=== PATIENT | male | born 2000 | race Caucasian/White ===

== ENCOUNTER 2022-07-28 11:48 | Emergency (ER) | payer BC, SELFPAY ==
--- NOTE | ~2022-07-28 | XR_ITS ---
EXAMINATION: XR chest 2V DATE: 07/28/2022 12:35 INDICATION: Chest pain. TECHNIQUE: Frontal and lateral views of the chest were obtained. COMPARISON: None. FINDINGS: The chest demonstrates clear lungs without pneumonia, pleural effusion, or pneumothorax. Th e heart size is normal. IMPRESSION: 1. No acute cardiopulmonary disease. Reviewed, dictated and finalized at location A.
--- NOTE | 2022-07-28 11:50 | ECG_ITS ---
Measurements Intervals [place] Rate: 76 P: 51 UT: 120 QRS: 66 QRSD: 72 T: 68 QT: 340 QTc: 384 Interpretive Statements SINUS RHYTHM WITH SINUS ARRHYTHMIA BASELINE WANDER- I, II, V2-V3 NORMAL ECG NO PREVIOUS ECG AVAILABLE FOR COMPARISON Electronically Signed On 07-28-2022 12:46:57 CDT by Carlos Bonner D.O.
[2022-07-28 12:00] VITALS: BP 124/70; PULSE 76; RESP 15; TEMP 36.7; O2SAT 99
[2022-07-28 12:22] LABS: Basophils Percent Auto 0.6 % (0.2-1.2); Eosinophils Absolute Auto 0.1 K/mm3 (0-0.3); Eosinophils Percent Auto 1.7 % (0-4.4); Hematocrit 44.4 % (42.0-52.0); Hemoglobin 14.7 g/dL (14.0-18.0); Immature Granulocyte Absolute 0.01 K/mm3 (0.00-0.031); Immature Granulocyte Percent A 0.2 % (0-0.5); Lymphocytes Absolute Auto 1.58 K/mm3 (0.9-3.2); Mean Corpuscular HGB Conc 33.1 g/dl (32-36); Mean Corpuscular Hemoglobin 30.1 pg (26-34); Mean Platelet Volume 9.5 fl (7.4-10.4); Monocytes Absolute Auto 0.7 K/mm3 (0.1-0.6); Monocytes Percent Auto 12.8 % (2.6-8.5); Neutrophils Percent Auto 55.7 % (45.5-73.1); Platelet Count Result 263 k/mm3 (150-375); Red Blood Count 4.88 M/mm3 (4.6-6.20); Red Cell Distribution Width 13.7 % (11.5-14.5); White Blood Count 5.5 K/mm3 (4.5-10.0)
[2022-07-28 12:31] LABS: Prothrombin Time 12.8 Seconds (11.1-14.7)
[2022-07-28 12:32] LABS: Alanine Aminotransferase 24 U/L (6-50); Albumin Level 4.8 g/dL (3.5-5.1); Alkaline Phosphatase 98 U/L (38-126); Anion Gap 6 mmol/L (8-16); Aspartate Amino Transferase 23 U/L (17-59); Bilirubin,Total 0.4 mg/dL (0.2-1.3); Blood Urea Nitrogen 19 mg/dL (9-20); Calcium 9.5 mg/dL (8.4-10.2); Carbon Dioxide 26 mmol/L (22-30); Chloride 103 mmol/L (98-107); Estimated CRCL calculation 134 ml/min; Estimated Glomerular Filt Rate > 60; Glucose 96 mg/dL (65-110); Lipase 47 U/L (23-300); Partial Thromboplastin Time 29.2 SECONDS (22.3-36.8); Potassium 4.2 mmol/L (3.4-5.0); Sodium 135 mmol/L (137-145)
[2022-07-28 12:44] LABS: Troponin I < 0.012 ng/mL (0.000-0.034)
--- NOTE | 2022-07-28 13:02 | ED.CHESTPAIN ---
HPI - Chest Pain General Chief Complaint: Chest Pain Stated Complaint: Chest Pain, Collapsed Last week, Sent by PCP today Time Seen by Provider: 07/28/22 12:29 History of Present Illness HPI narrative: 21-year-old male with no medical history presenting with chest pain that started about a week ago, to his left chest, comes and goes, does not seem to be associate with anything other than when he is feeling stressed. No recent trauma but states he had been lifting heavy weights for past few days. No cough; only family history of heart disease is grandfather with SD in his 40s. Related Data Allergies Allergy/AdvReac Type Severity Reaction Status Date / Time No Known Allergies Allergy Verified 07/28/22 11:49 Review of Systems Review of Systems: CONST: No fever. HEENT: No sore throat C/V: Chest pain RESP: No cough GI: No abdominal pain, nausea, vomiting : No dysuria. M/S: No joint pain. SKIN: No rash. NEURO: [No headache or focal numbness or weakness] PSYCH: Anxiety Exam Narrative: EXAMINATION OF ORGAN SYSTEMS/BODY AREAS: Constitutional: Vital signs per nursing GENERAL:[No acute distress, non-toxic appearing.] Pleasant and answering questions HEAD: Normal with no signs of head trauma. EYES: EOMI, conjunctiva normal ENT: Hearing grossly intact LUNGS: Nonlabored breathing. Speaking in full and complete sentences HEART: [Regular rate and rhythm]. No chest wall pain ABD: [Soft], [nontender to palpation] EXT: Normal range of motion SKIN: [No rashes or lesions.] NEURO: [Alert and oriented x 3. No gross focal sensory or strength deficits.] PSYCH: Normal affect Course Vital Signs Vital signs: Vital Signs Temperature 98.1 F 07/28/22 12:00 Pulse Rate 76 07/28/22 12:00 Respiratory Rate 15 07/28/22 12:00 Blood Pressure 124/70 07/28/22 12:00 Pulse Oximetry 99 07/28/22 12:00 Oxygen Delivery Room Air 07/28/22 12:00 Temperature 98.1 F 07/28/22 12:00 Pulse Rate 76 07/28/22 12:00 Respiratory Rate 15 07/28/22 12:00 Blood Pressure 124/70 07/28/22 12:00 Pulse Oximetry 99 07/28/22 12:00 Oxygen Delivery Room Air 07/28/22 12:00 MDM - Chest Pain MDM Narrative Medical decision making narrative: ED COURSE AND MEDICAL DECISION MAKIN-year-old man presenting with chest pain. EKG done in triage negative for acute ischemic changes. Cardiac workup is initiated. EKG: Performed in triage and interpreted by me. Normal sinus rhythm. Rate 76. Normal axis. IN normal. QRS duration normal. QTc normal. No pathologic Q waves. No ST segment elevation or depression to suggest acute ischemia. No RV strain pattern. Consistent with benign early repolarization. HEART score is 0 with no acute ischemic changes on EKG and negative troponin making ACS unlikely. Wells low risk with negative PERC and d-dimer making PE unlikely. Presentation not consistent with dissection or aneurysm without radiation of pain or pulse deficits. CXR negative for mediastinal widening. No abdominal pain or signs of sepsis that would be concerning for esophageal perforation or mediastinitis. No cardiomegaly or JVD to suggest pericardial effusion/tamponade. Labs within acceptable limits, chest x-ray unremarkable. On repeat evaluation just prior to discharge, the patient is no acute distress. I had a long discussion with the patient and with shared decision making, [he] is comfortable with outpatient management. [He] was given clear return instructions by myself in person as well as on discharge paperwork. Procedures: Pulse oximetry interpretation - not hypoxic. EKG interpretation. Review of medical records. Lab Data 07/28/22 12:08 07/28/22 12:08 Labs: Lab Results 07/28/22 07/28/22 07/28/22 Range/Units 12:08 12:08 12:08 WBC 5.5 (4.5-10.0) K/mm3 RBC 4.88 (4.6-6.20) M/mm3 Hgb 14.7 (14.0-18.0) g/dL Hct 44.4 (42.0-52.0) % MCV 91.0 (80-100) fl MCH 30.1 (26-34) pg MC
[2022-07-28 13:15] LABS: D Dimer < 0.27 ug/mL (<0.48)
[2022-07-28 13:40] VITALS: BP 142/84; RESP 78; O2SAT 16
== END 2022-07-28 13:41 | disposition home or self-care (01) ==
PROVIDERS: Physician Assistant; Emergency Provider Emergency Medicine; PCP Emergency Medicine
DX: R07.9 Chest pain, unspecified (principal)
CPT/HCPCS: 36415; 71046; 80053; 83690; 84484; 85025; 85380; 85610; 85730; 93005; 99283

== ENCOUNTER 2025-02-23 20:26 | Emergency (ER) | payer SELFPAY ==
[2025-02-23 20:28] VITALS: BP 133/79; PULSE 103; RESP 16; TEMP 36.9; O2SAT 99
--- NOTE | 2025-02-23 21:25 | ED_ITS ---
HPI - Allergic Reaction General Chief complaint: Allergic Reaction Stated complaint: ALLERGIC REACTION Time Seen by Provider: 02/23/25 20:43 History of Present Illness HPI narrative: Patient is 24-year-old male who presents to the ER with complaints of an allergic reaction. He reports he 1st noticed his symptoms this morning. Patient endorses redness, swelling, and patchy rash is all over his body besides his neck and face. He reports he took 2 Benadryl at home but it did not help relieve his symptoms. Patient reports the spots are itching. He denies any new soaps, laundry detergent, or lotions. Patient denies any shortness of breath, drooling, throat swelling, or headache. He denies any medical history relevant to this ER visit. Related Data Allergies Allergy/AdvReac Type Severity Reaction Status Date / Time No Known Allergies Allergy Verified 02/23/25 20:32 Review of Systems Review of Systems: All systems reviewed & are unremarkable except as noted in HPI and below Exam Narrative: GENERAL: Well appearing, well-nourished, non-toxic, in no acute distress. HEAD: Normocephalic, atraumatic. NECK: Supple. No adenopathy, no masses. RESPIRATORY: Airway patent, respirations nonlabored. Clear to auscultation bilaterally, no rales, rhonchi, wheezing. CARDIOVASCULAR: Regular rate and rhythm without murmurs, rubs, or gallops. Peripheral pulses 2+ and equal bilaterally. ABDOMINAL: Soft, nontender, nondistended, no hepatosplenomegaly. Normoactive BS. MUSCULOSKELETAL: Moves all extremities. Strength/ROM intact without gross deformities. SKIN: Warm, dry, normal color. Large patches of raised rashes on patient's arms, legs, torso, back. Some appear linear due to his scratching. No open areas at the time of examination. NEURO: A&O X3. Speech clear. Cranial nerves II-XII intact. No ataxic movements. PSYCHIATRIC: Appropriate mood and affect. Normal interaction. Course Vital Signs Vital signs: Vital Signs Temperature 36.9 C 02/23/25 20:28 Pulse Rate 103 H 02/23/25 20:28 Respiratory Rate 16 02/23/25 20:28 Blood Pressure 133/79 02/23/25 20:28 Pulse Oximetry 99 02/23/25 20:28 Oxygen Delivery Room Air 02/23/25 20:28 Temperature 36.9 C 02/23/25 20:28 Pulse Rate 103 H 02/23/25 20:28 Respiratory Rate 16 02/23/25 20:28 Blood Pressure 133/79 02/23/25 20:28 Pulse Oximetry 99 02/23/25 20:28 Oxygen Delivery Room Air 02/23/25 20:28 MDM - Allergic Reaction MDM Narrative Medical decision making narrative: Patient is 24-year-old male who presents to the ER with complaints of an allergic reaction. He reports he 1st noticed his symptoms this morning. Patient endorses redness, swelling, and patchy rash is all over his body besides his neck and face. He reports he took 2 Benadryl at home but it did not help relieve his symptoms. Patient reports the spots are itching. He denies any new soaps, laundry detergent, or lotions. Patient denies any shortness of breath, drooling, throat swelling, or headache. He denies any medical history relevant to this ER visit. Medications Ordered: 1 L normal saline IV bolus, Decadron IV, Benadryl IV, hydrocortisone cream 2.5%, Pepcid IV Diagnosis: Contact dermatitis, urticaria Patient Education/Shared MDM: Patient endorses improvement of symptoms following medication administration, but continues to have red blotchy splotches around his body. Patient strongly advised to follow-up with his PCP as soon as possible to ensure he is healing. He will be discharged home with a prescription for Medrol Dosepak, hydrocortisone 2.5%. Strict return precautions provided. Patient verbalized understanding and is in agreement with plan. Vital signs stable at time of discharge. All questions answered. Differential Diagnosis Differential diagnosis: Likely allergic reaction, contact dermatitis and urticaria Discharge Plan Discharge Clinical Impression: Urticaria, Contact dermatitis Patient Disposition: Home Condition: Stable Instructions: Antibiotic Form, Urticaria (ED) Additional Instructions: Please return to the ER with any worsening symptoms. Follow-up with primary care provider as soon as possible to ensure you are healed. Take all medications as prescribed. Please try not to scratch your skin. Patient Language: [place] Prescriptions: New hydrocortisone 2.5 % cream 1 applic topical TID PRN (Reason: itching) Qty: 30 0RF methylprednisolone [Medrol (Marc)] 4 mg tablets,dose pack See Rx Instructions .ROUTE .COMPLEX Qty: 21 0RF Rx Instructions: for 6 days Follow-up/Referrals: Rober Parra MD [Primary Care Provider, Family Practice] Stand Alone Forms: Work/School Release IP Time of Disposition: 01:03
[2025-02-23] MEDS: SODIUM CHLORIDE 0.9% IV 1,000 ML 999 ML IV CONT (22:04)
[2025-02-23] MEDS: dexAMETHasone SOD PHOS INJ 10 MG/ML 1 ML VIAL IV PUSH (22:05)
[2025-02-23] MEDS: FAMOTIDINE 20 MG/2 ML VIAL IV PUSH (22:05)
[2025-02-24] MEDS: HYDROCORTISONE 2.5% CREAM 30 GM TUBE 1 APPLIC TOPICAL (01:13)
[2025-02-24 01:17] VITALS: BP 118/78; PULSE 85; RESP 18; O2SAT 99
== END 2025-02-24 01:17 | disposition home or self-care (01) ==
PROVIDERS: Emergency Provider Registered Nurse; PCP Emergency Medicine
DX: L50.9 Urticaria, unspecified (principal); L25.9 Unspecified contact dermatitis, unspecified cause
CPT/HCPCS: 96361; 96374; 96375; 99284; A9270; J1100; J1200; J7030